=== PATIENT | female | born 1975 | race African-American/Black ===

== ENCOUNTER 2018-09-11 15:00 | Emergency (ER) | payer OTHER ==
[2018-09-11 15:04] VITALS: BMI 26.3
--- NOTE | 2018-09-11 15:16 | PDOC ---
History of Present Illness - General Chief Complaint: Pain, Acute Stated Complaint: NECK PAIN Time Seen by Provider: 09/11/18 15:16 - History of Present Illness Initial Comments: 09/11/18 15:20 Ms. Colunga is a 42 yo female w/ no pmh who presents for evaluation after fall yesterday. Patient reports she was on a ladder yesterday and fell approximately 7 feet onto her back. Complaining to day of R neck pain and L anterior thigh pain. Took 1000mg of tylenol yesterday which improved pain however it persists today, prompting her visit. Denies any saddle anesthesia, loss of bowel or bladder, or neurological symptoms. The patient denies chest pain, shortness of breath, headache and dizziness. Denies fever, chills, nausea, vomit, diarrhea and constipation. Denies dysuria, frequency, urgency and hematuria. Past History - Past Medical History Allergies/Adverse Reactions: Allergies Allergy/AdvReac Type Severity Reaction Status Date / Time No Known Allergies Allergy Verified 09/11/18 15:01 Home Medications: Ambulatory Orders NK [No Known Home Medication] 09/11/18 COPD: No - Suicide/Smoking/Psychosocial Hx Smoking History: Current every day smoker Number of Cigarettes Smoked Daily: 2 Information on smoking cessation initiated: Yes Hx Alcohol Use: No Drug/Substance Use Hx: No Review of Systems - Review of Systems Comments:: 09/11/18 15:25 GENERAL/CONSTITUTIONAL: No fever or chills. No weakness. HEAD, EYES, EARS, NOSE AND THROAT: No change in vision. No ear pain or discharge. No sore throat. CARDIOVASCULAR: No chest pain or shortness of breath RESPIRATORY: No cough, wheezing, or hemoptysis. GASTROINTESTINAL: No nausea, vomiting, diarrhea or constipation. GENITOURINARY: No dysuria, frequency, or change in urination. MUSCULOSKELETAL: +Left anterior thigh and right neck pain as described. Additional R scapular pain SKIN: No rash NEUROLOGIC: No headache, vertigo, loss of consciousness, or change in strength/ sensation. ENDOCRINE: No increased thirst. No abnormal weight change HEMATOLOGIC/LYMPHATIC: No anemia, easy bleeding, or history of blood clots. ALLERGIC/IMMUNOLOGIC: No hives or skin allergy. *Physical Exam - Vital Signs Last Vital Signs Temp Pulse Resp BP Pulse Ox 0/0 L 09/11/18 15:01 - Physical Exam Comments: 09/11/18 15:26 GENERAL: Awake, alert, and fully oriented, in no acute distress HEAD: No signs of trauma, normocephalic, atraumatic EYES: PERRLA, EOMI, sclera anicteric, conjunctiva clear ENT: Auricles normal inspection, hearing grossly normal, nares patent, oropharynx clear without exudates. Moist mucosa NECK: +Pain w/ palpation of R neck. ROM limited by pain. Supple, no lymphadenopathy, JVD, or masses LUNGS: No distress, speaks full sentences, clear to auscultation bilaterally HEART: Regular rate and rhythm, normal S1 and S2, no murmurs, rubs or gallops, peripheral pulses normal and equal bilaterally. ABDOMEN: Soft, nontender, normoactive bowel sounds. No guarding, no rebound. No masses EXTREMITIES: +Point tenderness to R scapula. Normal inspection, Normal range of motion, no edema. No clubbing or cyanosis. NEUROLOGICAL: Cranial nerves II through XII grossly intact. Normal speech, normal gait, no focal sensorimotor deficits SKIN: Warm, Dry, normal turgor, no rashes or lesions noted. Medical Decision Making - Medical Decision Making 09/11/18 17:57 Ms. Colunga is a 42 yo female w/ pmh as described who presents for evaluation of pain s/p fall. Patient evaluated with XR and C-spine CT with no concerning findings. Patient well appearing and safe for discharge to home. No concerning findings at this time. Discharging to home. *DC/Admit/Observation/Transfer Diagnosis at time of Disposition: Fall Qualifiers: Encounter type: initial encounter Qualified Code(s): W19.XXXA - Unspecified fall, initial encounter - Discharge Dispostion Disposition: HOME Condition at time of disposition: Stable - Referrals Referrals: Boo Huitron [Primary Care Provider] - - Patient Instructions Printed Discharge Instructions: DI for Trauma Additional Instructions: You were evaluated today in the ER for your fall with X-ray and CT scan. No concerning findings were found and you are safe to resume normal duties as tolerated. You may take motrin or tylenol per package instructions for pain control. Follow-up with primary care provider later this week for further evaluation. Return to ER if any fever, increase in pain, altered mental status, or other concerning symptoms. - Post Discharge Activity
[2018-09-11 15:29] VITALS: BP 124/80; PULSE 89; TEMP 99
--- NOTE | 2018-09-11 15:34 | PDOC ---
Attending Attestation - Resident Resident Name: Javi Singer - ED Attending Attestation I have performed the following: I have examined & evaluated the patient, The case was reviewed & discussed with the resident, I agree w/resident's findings & plan, Exceptions are as noted - HPI HPI: 42 yo F no significant PMH presents with neck pain after falling from tree yesterday. She states she was removing some branches when she fell approximately 7 feet onto her back. She had some pain yesterday, but it worsened today, prompting her to seek evaluation. Denies weakness, numbness. No LOC. - Physicial Exam PE: GENERAL: Awake, alert, and fully oriented, in no acute distress HEAD: No signs of trauma EYES: PERRLA, EOMI, sclera anicteric, conjunctiva clear ENT: Auricles normal inspection, hearing grossly normal, nares patent, oropharynx clear without exudates. Moist mucosa NECK: Normal ROM, supple, no lymphadenopathy, JVD, or masses LUNGS: Breath sounds equal, clear to auscultation bilaterally. No wheezes, and no crackles HEART: Regular rate and rhythm, normal S1 and S2, no murmurs, rubs or gallops ABDOMEN: Soft, nontender, normoactive bowel sounds. No guarding, no rebound. No masses EXTREMITIES: Normal range of motion, no edema. No clubbing or cyanosis. No cords, erythema, or tenderness NEUROLOGICAL: Cranial nerves II through XII grossly intact. Normal speech, normal gait. Motor and sensation intact SKIN: Warm, Dry, normal turgor, no rashes or lesions noted. SPINE: +Midline tenderness C5-7. No step-offs. +Paraspinal soft tissue tenderness. - Medical Decision Making CTH and c-spine no acute findings. XR with no fx. Stable for DC home.
== END 2018-09-11 18:02 | disposition home or self-care (01) ==
LOC: FER 15:00
DX: Z04.3 Encounter for examination and observation following other accident (principal); W11.XXXA Fall on and from ladder, initial encounter; Y93.89 Activity, other specified; Y92.89 Other specified places as the place of occurrence of the external cause; F17.210 Nicotine dependence, cigarettes, uncomplicated
CPT/HCPCS: 72125-TC; 73010-TC-FY; 84703; 99282-25

== ENCOUNTER 2019-01-28 10:10 | Emergency (ER) | payer OTHER ==
[2019-01-28 10:14] VITALS: BMI 28.1
[2019-01-28] MEDS ORDERED: SODIUM CHLORIDE 1,000 ML IV STA (11:10)
[2019-01-28] MEDS ORDERED: ONDANSETRON 4 MG/2 ML VIAL IVPUSH ONE (11:10)
[2019-01-28] MEDS ORDERED: ACETAMINOPHEN 1000 MG/100 ML VIAL (NON FORMULARY) IVPB ONE (11:10)
[2019-01-28] MEDS ORDERED: ONDANSETRON 4 MG/2 ML VIAL ONE (11:17)
[2019-01-28] MEDS ORDERED: ACETAMINOPHEN INJECTION 100 ML IVPB ONE (11:17)
[2019-01-28 11:51] LABS: BASO % 0.5 % (0-2.0); HEMATOCRIT 34.7 % (32.4-45.2); LYMPH % 6.1 % (8-40); MCHC 34.6 g/dl (32.0-36.0); MEAN CELL VOLUME 89.6 fl (80-96); MEAN PLT VOLUME 9.2 fl (7.5-11.1); MONO % 7.7 % (3.8-10.2); NEUT % 85.7 % (42.8-82.8); RBC 3.87 M/mm3 (3.60-5.2); RDW 12.4 % (11.6-15.6); WHITE BLOOD COUNT 29.2 K/mm3 (4.0-10.0)
[2019-01-28 12:01] LABS: PLATELET COUNT 293 K/MM3 (134-434)
[2019-01-28 12:02] LABS: INR 1.42 (0.83-1.09); PROTHROMBIN TIME (PATIENT) 16.8 SEC (9.7-13.0)
[2019-01-28 12:08] LABS: HYALINE CASTS 23 /lpf (0-8); PH,URINE 6.5 (5.0-8.0); URINE APPEARANCE CLOUDY; URINE BACTERIA >9000 /hpf (NEGATIVE); URINE BILIRUBIN NEGATIVE (NEGATIVE); URINE COLOR YELLOW; URINE GLUCOSE (UA) NEGATIVE (NEGATIVE); URINE KETONE NEGATIVE (NEGATIVE); URINE LEUK ESTERASE 2+ (NEGATIVE); URINE NITRITE POSITIVE (NEGATIVE); URINE PROTEIN NEGATIVE (NEGATIVE); URINE RBC 1 /hpf (0-4); URINE UROBILINOGEN 0.2 mg/dL (0.2-1.0); URINE WBC 27 /hpf (0-5)
[2019-01-28 12:20] LABS: ALBUMIN 3.7 g/dl (3.4-5.0); BILIRUBIN,TOTAL 0.6 mg/dL (0.2-1); BLOOD UREA NITROGEN 8.2 mg/dL (7-18); CALCIUM 9.3 mg/dL (8.5-10.1); CREATININE 0.8 mg/dL (0.55-1.3); TOT PROT 7.3 g/dl (6.4-8.2)
--- NOTE | 2019-01-28 12:30 | PDOC ---
History of Present Illness - General History Source: Patient Exam Limitations: No Limitations - History of Present Illness Travel History: No Initial Comments: 01/28/19 11:00 43-year-old female with no past medical history presents to ED with complaints of fever, chills, mild nausea, 2 episodes of diarrhea along with lower abdominal cramping. Patient states symptoms began approximately 2 days ago and worsened in severity but denies back or flank pain. Patient states has not taken any medication for the fever and decided come to the ER today. Patient denies any recent travel, recent illness GI or disorders, recent sick contacts. Timing/Duration: reports: getting worse Quality: reports: moderate Abdominal Pain Onset Location: reports: RLQ, suprapubic Pain Radiation: reports: no radiation Activities at Onset: reports: none Aggravating Factors: improves with: None Alleviating Factors: improves with: None <Raquel Chambers - Last Filed: 01/28/19 15:15> <Concepción Negron - Last Filed: 01/29/19 13:34> - General Chief Complaint: Pain Stated Complaint: ABD PAIN / VOMITTING Time Seen by Provider: 01/28/19 10:34 Past History - Travel Traveled outside of the country in the last 30 days: No Close contact w/someone who was outside of country & ill: No - Past Medical History COPD: No - Suicide/Smoking/Psychosocial Hx Smoking History: Never smoked Number of Cigarettes Smoked Daily: 2 'Breaking Loose' booklet given: 09/11/18 Hx Alcohol Use: No Drug/Substance Use Hx: No Patient Lives Alone: No Lives with/in: spouse/SO <Raquel Chambers - Last Filed: 01/28/19 15:15> <Concepción Negron - Last Filed: 01/29/19 13:34> - Past Medical History Allergies/Adverse Reactions: Allergies Allergy/AdvReac Type Severity Reaction Status Date / Time No Known Allergies Allergy Verified 01/28/19 11:50 Home Medications: Ambulatory Orders Sulfamethoxazole/Trimethoprim [Bactrim Ds -] 1 tab PO BID #28 tablet 01/28/19 Review of Systems - Review of Systems Able to Perform ROS?: Yes Constitutional: Yes: Chills, Fever, Weakness HEENTM: No: Symptoms Reported Respiratory: No: Symptoms reported Cardiac (ROS): No: Symptoms Reported ABD/GI: Yes: Diarrhea, Nausea, Poor Appetite, Poor Fluid Intake, Abdominal cramping : No: Symptoms Reported, Flank Pain Musculoskeletal: No: Symptoms Reported, Back Pain Integumentary: No: Symptoms Reported Neurological: No: Symptoms reported Hematologic/Lymphatic: No: Symptoms Reported <Raquel Chambers - Last Filed: 01/28/19 15:15> *Physical Exam - Vital Signs Last Vital Signs Temp Pulse Resp BP Pulse Ox 101.6 F H 113 H 18 116/71 99 01/28/19 10:11 01/28/19 10:11 01/28/19 10:11 01/28/19 10:11 01/28/19 10:11 - Physical Exam General Appearance: Yes: Nourished, Appropriately Dressed. No: Apparent Distress HEENT: negative: Pale Conjunctivae Neck: positive: Normal Thyroid Respiratory/Chest: positive: Lungs Clear, Normal Breath Sounds. negative: Respiratory Distress, Accessory Muscle Use Cardiovascular: positive: Regular Rhythm, Tachycardia. negative: Murmur Gastrointestinal/Abdominal: positive: Soft, Tenderness (right lower quadrant, right suprapubic and mid suprapubic tenderness) Musculoskeletal: negative: CVA Tenderness Extremity: positive: Normal Inspection Integumentary: positive: Normal Color, Warm, Moist Neurologic: positive: Motor Strength 5/5 (ambulatory) <Raquel Chambers - Last Filed: 01/28/19 15:15> - Vital Signs Last Vital Signs Temp Pulse Resp BP Pulse Ox 101.6 F H 113 H 18 116/71 99 01/28/19 10:11 01/28/19 10:11 01/28/19 10:11 01/28/19 10:11 01/28/19 10:11 <Concepción Negron - Last Filed: 01/29/19 13:34> ED Treatment Course - LABORATORY CBC & Chemistry Diagram: 01/28/19 14:20 01/28/19 11:25 - Medications Given in the ED: ED Medications Discontinued Medications Generic Name Dose Route Start Last Admin Trade Name Freq PRN Reason Stop Dose Admin Acetaminophen 1,000 mg 01/28/19 11:10 01/28/19 11:38 Ofirmev Injection - IVPB 01/28/19 11:11 1,000 mg ONCE ONE Administration Ondansetron HCl 4 mg 01/28/19 11:10 01/28/19 11:38 Zofran Injection IVPUSH 01/28/19 11:11 4 mg ONCE ONE Administration <Raquel Chambers - Last Filed: 01/28/19 15:15> - LABORATORY CBC & Chemistry Diagram: 01/28/19 14:20 01/28/19 11:25 - ADDITIONAL ORDERS Additional order review: Laboratory Results 01/28/19 01/28/19 01/28/19 11:25 11:25 11:25 PT with INR 16.80 H INR 1.42 H Sodium Potassium Chloride Carbon Dioxide Anion Gap BUN Creatinine Est GFR (CKD-EPI)AfAm Est GFR (CKD-EPI)NonAf Random Glucose Lactic Acid 1.3 Calcium Total Bilirubin AST ALT Alkaline Phosphatase Total Protein Albumin Lipase Urine Color Urine Appearance Urine pH Ur Specific [place] Urine Protein Urine Glucose (UA) Urine Ketones Urine Blood Urine Nitrite Urine Bilirubin Urine Urobilinogen Ur Leukocyte Esterase Urine WBC (Auto) Urine RBC (Auto) Urine Casts (Auto) U Epithel Cells (Auto) Urine Bacteria (Auto) Urine HCG, Qual Blood Type A POSITIVE Antibody Screen Negative 01/28/19 01/28/19 01/28/19 11:25 11:11 11:11 PT with INR INR Sodium 141 Potassium 3.0 L Chloride 104 Carbon Dioxide 30 Anion Gap 7 L BUN 8.2 Creatinine 0.8 Est GFR (CKD-EPI)AfAm 105.39 Est GFR (CKD-EPI)NonAf 90.93 Random Glucose 91 Lactic Acid Calcium 9.3 Total Bilirubin 0.6 AST 10 L ALT 18 Alkaline Phosphatase 89 Total Protein 7.3 Albumin 3.7 Lipase 64 L Urine Color Yellow Urine Appearance Cloudy Urine pH 6.5 Ur Specific [place] 1.012 Urine Protein Negative Urine Glucose (UA) Negative Urine Ketones Negative Urine Blood 1+ H Urine Nitrite Positive H Urine Bilirubin Negative Urine Urobilinogen 0.2 Ur Leukocyte Esterase 2+ H Urine WBC (Auto) 27 Urine RBC (Auto) 1 Urine Casts (Auto) 23 U Epithel Cells (Auto) 4.0 Urine Bacteria (Auto) >9000 Urine HCG, Qual Negative Blood Type Antibody Screen 01/28/19 11:25 RBC 3.87 MCV 89.6 MCHC 34.6 RDW 12.4 MPV 9.2 Neutrophils % 85.7 H Lymphocytes % 6.1 L Monocytes % 7.7 Eosinophils % 0.0 Basophils % 0.5 - Medications Given in the ED: ED Medications Discontinued Medications Generic Name Dose Route Start Last Admin Trade Name Dudley PRN Reason Stop Dose Admin Acetaminophen 1,000 mg 01/28/19 11:10 01/28/19 11:38 Ofirmev Injection - IVPB 01/28/19 11:11 1,000 mg ONCE ONE Administration Sodium Chloride 1,000 mls @ 1,000 mls/hr 01/28/19 11:10 01/28/19 11:38 Normal Saline - IV 01/28/19 12:09 1,000 mls/hr ASDIR STA Administration Ceftriaxone Sodium 1 gm/ 50 mls @ 100 mls/hr 01/28/19 12:49 01/28/19 13:22 Dextrose IVPB 01/28/19 13:18 100 mls/hr ONCE ONE Administration Ondansetron HCl 4 mg 01/28/19 11:10 01/28/19 11:38 Zofran Injection IVPUSH 01/28/19 11:11 4 mg ONCE ONE Administration <Concepción Negron - Last Filed: 01/29/19 13:34> Medical Decision Making - Medical Decision Making 01/28/19 10:58 Chief complaint: Fever, chills lower abdominal cramping with 2 episodes of diarrhea and mild nausea Exam: Patient febrile tachycardic and with right lower quadrant right suprapubic tenderness on exam Plan: Septic workup, lipase, urine IV Tylenol IV fluids Zofran and will consider imaging once labs are reviewed. 01/28/19 13:00 Laboratory Tests 01/28/19 01/28/19 01/28/19 11:11 11:11 11:25 WBC 29.2 H Hgb 12.0 Hct 34.7 Absolute Neuts (auto) 25.0 H Neutrophils % 85.7 H Lymphocytes % 6.1 L PT with INR INR Sodium Potassium Chloride Carbon Dioxide Anion Gap BUN Random Glucose Lactic Acid AST ALT Alkaline Phosphatase Total Protein Albumin Lipase Urine Blood 1+ H Urine Nitrite Positive H Ur Leukocyte Esterase 2+ H Urine WBC (Auto) 27 Urine RBC (Auto) 1 Urine Bacteria (Auto) >9000 Urine HCG, Qual Negative 01/28/19 01/28/19 01/28/19 11:25 11:25 11:25 WBC Hgb Hct Absolute Neuts (auto) Neutrophils % Lymphocytes % PT with INR 16.80 H INR 1.42 H Sodium 141 Potassium 3.0 L Chloride 104 Carbon Dioxide 30 Anion Gap 7 L BUN 8.2 Random Glucose 91 Lactic Acid 1.3 AST 10 L ALT 18 Alkaline Phosphatase 89 Total Protein 7.3 Albumin 3.7 Lipase 64 L Urine Blood Urine Nitrite Ur Leukocyte Esterase Urine WBC (Auto) Urine RBC (Auto) Urine Bacteria (Auto) Urine HCG, Qual Patient ordered for abdominal and pelvic CT with IV contrast, and IV ceftriaxone for positive urinary tract infection 01/28/19 13:54 CT shows no evidence of acute pathology within the abdomen or pelvis. There is a 2 cm in the looting cyst of the left ovary. Patient states feeling much better. Patient will have repeat CBC done and if trending down will discharge home with antibiotics 01/28/19 15:07 Laboratory Tests 01/28/19 01/28/19 11:25 14:20 WBC 25.6 H Neutrophils % 85.7 H 85.5 H 01/28/19 15:15 Pt offered food before she left because she c/o mild headache and she did not eat this am. Pt refused and requesting Motrin. Repeat vs ...hr 95, oral temp 99.5. <Raquel Chambers - Last Filed: 01/28/19 15:15> - Medical Decision Making The patient was seen and evaluated in conjunction with midlevel provider under my direct supervision, ancillary studies were reviewed. I agree with the plan as outlined [employer] Reyes. HPI, workup/dispo as outlined. Initially VS reviewed, fever and tachycardia No comorbidities, healthy otherwise labs with significant leukocytosis of 29K, septic workup initiated lactic normal, reassuring. IVF< analgesia, tylenol and IV ceftriaxone for presumed UTI/pyelo. CT neg for appy or abdominal pathology 01/28/19 14:47 - assessed the patient as well, feels much improved, abdomen with mild lower abdomen (also had diarrhea) and no flank tenderness. but nontoxic appearing. calderon PO given IV ceftriaxone x 1 dose, cultures pending likely E. coli with nitrite production in UA, f/u urine cultures repeat VS improving, no longer tachy or febrile. repeat BP also normotensive, pain controlled. shared decision making, offered and suggested admission given elevated WBC ct and UTI and SIRS features, with otherwise unremarkable lactic/labs except for Leukocytosis. pt wishes to go home, so will treat with oral abx, Bactrim BID x 14 days total strict return precautions, including s/s sepsis, fever, dehydration, worsening pain/symptoms, inability to calderon PO 01/28/19 14:50 01/28/19 15:26 01/29/19 13:33 <Concepción Negron - Last Filed: 01/29/19 13:34> *DC/Admit/Observation/Transfer <Raquel Chambers - Last Filed: 01/28/19 15:15> - Discharge Dispostion Decision to Admit order: No <Concepción Negron - Last Filed: 01/29/19 13:34> Diagnosis at time of Disposition: UTI (urinary tract infection) - Discharge Dispostion Disposition: HOME Condition at time of disposition: Improved - Prescriptions Prescriptions: Sulfamethoxazole/Trimethoprim [Bactrim Ds -] 1 tab PO BID #28 tablet - Referrals Referrals: [facility] [place] [Provider Group] [facility] [Provider Group] - Patient Instructions Printed Discharge Instructions: DI for Kidney Infection, DI for Urinary Tract Infection (UTI) Additional Instructions: Please start antibiotics tomorrow since you were given the 1 st dose here in he ED. Please drink plenty of fluids and take motrin 600mg for discomfort and fever. Return to the ER if you develop worsening pain, fever, or unable to tolerate anything by mouth. - Post Discharge Activity Forms/Work/School Notes: Back to Work
[2019-01-28 12:44] LABS: ANISOCYTOSIS 0; MACROCYTOSIS 0; PLATELET ESTIMATE NORMAL; TARGET CELLS 1+
[2019-01-28] MEDS ORDERED: CEFTRIAXONE 1 GM in DEXTROSE 5%-WATER - 50 ML IVPB ONE (12:49)
[2019-01-28] MEDS ORDERED: CEFTRIAXONE 1 GM/50 ML BAG ONE (13:19)
[2019-01-28 14:25] LABS: BASO % 0.4 % (0-2.0); HEMATOCRIT 32.2 % (32.4-45.2); LYMPH % 8.1 % (8-40); MCHC 34.1 g/dl (32.0-36.0); MEAN PLT VOLUME 9.1 fl (7.5-11.1); NEUT % 85.5 % (42.8-82.8); PLATELET COUNT 255 K/MM3 (134-434); RBC 3.54 M/mm3 (3.60-5.2); RDW 12.5 % (11.6-15.6); WHITE BLOOD COUNT 25.6 K/mm3 (4.0-10.0)
[2019-01-28] MEDS ORDERED: POTASSIUM CHLORIDE TABS 20 MEQ TABLET.ER (FP) PO ONE ×2 (14:50→15:29)
[2019-01-28 14:57] LABS: ANISOCYTOSIS 0; MACROCYTOSIS 0; PLATELET ESTIMATE NORMAL; TARGET CELLS 1+
[2019-01-28] MEDS ORDERED: IBUPROFEN 600 MG TABLET (FP) PO ONE ×2 (15:15→15:29)
[2019-01-28 15:26] VITALS: BP 108/68; PULSE 102; TEMP 99.1
--- NOTE | 2019-01-29 11:14 | EKG ---
Test Reason : Blood Pressure : / mmHG Vent. Rate : 095 BPM Atrial Rate : 095 BPM P-R Int : 140 ms QRS Dur : 080 ms QT Int : 338 ms P-R-T Axes : 053 040 040 degrees QTc Int : 424 ms NORMAL SINUS RHYTHM NORMAL ECG NO PREVIOUS ECGS AVAILABLE Confirmed by MARQUIS MASSEY MD ([id number]) on 01/29/2019 11:13:33 AM Referred By: Confirmed By:MARQUIS MASSEY MD
== END 2019-01-28 15:35 | disposition home or self-care (01) ==
LOC: JER 10:10
PROC: 3E033NZ Introduction of Analgesics, Hypnotics, Sedatives into Peripheral Vein, Percutaneous Approach (ICD-10-PCS; principal; 2019-01-28)
PROC: 3E03329 Introduction of Other Anti-infective into Peripheral Vein, Percutaneous Approach (ICD-10-PCS; 2019-01-28)
PROC: 3E033GC Introduction of Other Therapeutic Substance into Peripheral Vein, Percutaneous Approach (ICD-10-PCS; 2019-01-28)
PROC: 3E0337Z Introduction of Electrolytic and Water Balance Substance into Peripheral Vein, Percutaneous Approach (ICD-10-PCS; 2019-01-28)
DX: N39.0 Urinary tract infection, site not specified (principal)
CPT/HCPCS: 36415; 74177-TC; 80053; 81003; 83605; 83690; 84703; 85025; 85610; 86850; 86900; 86901; 87040; 87086; 87186; 93005; 93010; 99283-25; J0131; J7030

== ENCOUNTER 2019-01-29 16:36 | Inpatient (IN) | payer OTHER | END 2019-02-03 14:09 | disposition home or self-care (01) | LOC: J7W 01-31 11:45 → JER 16:36 → JERBED 18:13 → J7W 23:10 ==

== ENCOUNTER 2022-03-24 13:24 | Emergency (ER) | payer OTHER ==
[2022-03-24 13:44] VITALS: BP 124/77; PULSE 76; RESP 20; TEMP 98.4; BMI 29.1
[2022-03-24] MEDS ORDERED: KETOROLAC TROMETHAMINE 30 MG/1 ML VIAL IM ONE (14:23)
[2022-03-24] MEDS ORDERED: LIDOCAINE 5% TOPICAL PATCH TP ONE (14:23)
[2022-03-24] MEDS ORDERED: ACETAMINOPHEN 500 MG TABLET (FP) PO ONE (14:23)
[2022-03-24] MEDS ORDERED: diazePAM 5 MG TABLET PO ONE (14:23)
[2022-03-24] MEDS ORDERED: diazePAM 5 MG TABLET ONE (14:26)
[2022-03-24] MEDS ORDERED: LIDOCAINE 5% TOPICAL PATCH ONE (14:26)
[2022-03-24] MEDS ORDERED: ACETAMINOPHEN 500 MG TABLET (FP) ONE (14:26)
[2022-03-24] MEDS ORDERED: KETOROLAC TROMETHAMINE 30 MG/1 ML VIAL ONE (14:26)
[2022-03-24] MEDS ORDERED: LIDOCAINE PATCH REMOVAL MC SCH (22:00)
== END 2022-03-24 16:10 | disposition home or self-care (01) ==
LOC: JERFT 13:24 → JER 13:24 → JERFT 16:10
PROC: 3E0233Z Introduction of Anti-inflammatory into Muscle, Percutaneous Approach (ICD-10-PCS; principal; 2022-03-24)
DX: M54.2 Cervicalgia (principal); M25.511 Pain in right shoulder; V43.62XA Car passenger injured in collision with other type car in traffic accident, initial encounter
CPT/HCPCS: 99284-25

== ENCOUNTER 2025-02-07 08:34 | Emergency (ER) | payer OTHER ==
[2025-02-07 08:50] VITALS: BP 120/79; PULSE 84; RESP 18; TEMP 98.7; BMI 28.1
[2025-02-07] MEDS ORDERED: ACETAMINOPHEN 325 MG TABLET (FP) ONE (09:41)
[2025-02-07] MEDS: ACETAMINOPHEN 500 MG TABLET (FP) PO ONE (09:44)
== END 2025-02-07 09:49 | disposition home or self-care (01) ==
LOC: JERFT 08:34
DX: M54.6 Pain in thoracic spine (principal); M53.3 Sacrococcygeal disorders, not elsewhere classified; M54.2 Cervicalgia; V49.40XA Driver injured in collision with unspecified motor vehicles in traffic accident, initial encounter; Y92.410 Unspecified street and highway as the place of occurrence of the external cause
CPT/HCPCS: 71046-TC-FY; 99283-25